=== PATIENT | female | born 1945 | race Caucasian/White ===

== ENCOUNTER 2023-01-10 20:53 | Emergency (ER) | payer BC, MEDICARE ==
[2023-01-10 23:28] LABS: #Basophils 0.1 thou/uL (0.0-0.2); #Eosinphils 0.3 thou/uL (0.0-0.7); #Monocytes 0.6 thou/uL (0.11-0.59); #Neutrophils 3.5 thou/uL (1.40-6.50); %Eosinophils 4.1 % (0.0-10.0); %Lymphocytes 41.7 % (21.0-51.0); %Neutrophils 44.9 % (42.0-75.0); Hematocrit 42.1 % (36.0-47.0); Hemoglobin 13.8 g/dL (12.0-16.0); Mean Corpuscular HGB CONC 32.8 g/dL (32.0-36.0); Mean Corpuscular Hemoglobin 30.3 pg (27.0-31.0); Mean Corpuscular Volume 92.3 fl (78.0-98.0); Mean Platelet Volume 12.3 fL (7.4-10.4); Platelet Count 302 10x3/uL (130-400); RBC Distribution Width 13.7 % (11.5-14.5); Red Blood Cell (RBC) Count 4.56 mill/uL (4.20-5.40); White Blood Cell (WBC) Count 7.9 10x3/uL (4.8-10.8)
== END 2023-01-10 22:59 | disposition home or self-care (01) ==
LOC: ERS 20:53
DX: C50.911 Malignant neoplasm of unspecified site of right female breast (principal)
CPT/HCPCS: 85025; 99284

== ENCOUNTER 2023-04-28 17:58 | Emergency (ER) | payer BC, MEDICARE ==
[2023-04-28 19:22] LABS: #Basophils 0.1 thou/uL (0.0-0.2); #Eosinphils 0.3 thou/uL (0.0-0.7); #Monocytes 0.7 thou/uL (0.11-0.59); #Neutrophils 4.1 thou/uL (1.40-6.50); %Eosinophils 3.8 % (0.0-10.0); %Lymphocytes 27.3 % (21.0-51.0); %Monocytes 9.3 % (0.0-10.0); %Neutrophils 58.3 % (42.0-75.0); Hematocrit 36.9 % (36.0-47.0); Hemoglobin 11.8 g/dL (12.0-16.0); Mean Corpuscular Hemoglobin 29.2 pg (27.0-31.0); Mean Corpuscular Volume 91.3 fl (78.0-98.0); Mean Platelet Volume 10.9 fL (7.4-10.4); Platelet Count 250 10x3/uL (130-400); RBC Distribution Width 13.3 % (11.5-14.5); Red Blood Cell (RBC) Count 4.04 mill/uL (4.20-5.40); White Blood Cell (WBC) Count 7.1 10x3/uL (4.8-10.8)
== END 2023-04-28 19:40 | disposition home or self-care (01) ==
LOC: ERS 17:58
DX: C50.911 Malignant neoplasm of unspecified site of right female breast (principal); L76.22 Postprocedural hemorrhage of skin and subcutaneous tissue following other procedure; Z55.6 Problems related to health literacy
CPT/HCPCS: 36415; 85025; 99283